=== PATIENT | female | born 1965 | race Caucasian/White ===

== ENCOUNTER → 2017-06-02 | Outpatient (CLI) | payer BC ==
--- NOTE | 2017-06-02 14:12 | REPMRS ---
Patient History The patient states she had a clinical breast exam in 05/28 Patient is postmenopausal. Family history of colorectal cancer in father at age 50 or over. Digital Woman Screen Mammo: June 02, 2017 - Exam #: [id number] Bilateral CC and MLO view(s) were taken. Technologist: Sarah Vásquez, Technologist Prior study comparison: February 15, 2016, digital woman screen mammo performed at [facility] to [facility]. March 05, 2008, bilateral screening mammogram performed at [facility] to [facility]. FINDINGS: There are scattered fibroglandular densities. There has been no change in the appearance of the mammogram from the prior studies. There is a mild amount of residual fibroglandular tissue which is fairly symmetric. There is no interval development of dominant mass, architectural distortion, or clustered microcalcification suggestive of malignancy. ASSESSMENT: BI-RADS/ACR category 1 mammogram. Negative. Recommendation Routine screening mammogram in 1 year (for women over age 40). This mammogram was interpreted with the aid of an FDA-approved computer-aided dectection system. Electronically Signed By: Danny Wall MD 06/02/17 [id number]
== END ==
LOC: M WHC 13:13
PROVIDERS: ATTEND Nurse Practitioner Women's Health
DX: Z12.31 Encounter for screening mammogram for malignant neoplasm of breast (principal)

== ENCOUNTER → 2017-06-02 | Outpatient (REF) | payer OTHER | LOC: M SFHCWAGY 14:13 | PROVIDERS: ATTEND Nurse Practitioner Women's Health | DX: Z12.4 Encounter for screening for malignant neoplasm of cervix (principal); R87.615 Unsatisfactory cytologic smear of cervix ==

== ENCOUNTER → 2018-06-07 | Outpatient (CLI) | payer BC | LOC: M WHC 09:30 | DX: Z12.31 Encounter for screening mammogram for malignant neoplasm of breast (principal); N60.31 Fibrosclerosis of right breast; N60.32 Fibrosclerosis of left breast | CPT/HCPCS: 77067 ==

== ENCOUNTER → 2018-06-07 | Outpatient (REF) | payer OTHER ==
[2018-06-09 14:23] LABS: HPV HYBRID CAPTURE II Negative (Negative)
== END ==
LOC: M SFHCWAGY 10:13
DX: Z12.4 Encounter for screening for malignant neoplasm of cervix (principal)

== ENCOUNTER → 2019-06-10 | Outpatient (CLI) | payer BC ==
--- NOTE | 2019-06-10 12:11 | REPMRS ---
Patient History The patient states she had a clinical breast exam in 05/2019. Patient is postmenopausal. Family history of colorectal cancer at age 50 or over in father, endometrial cancer under age 50 in maternal aunt, endometrial cancer under age 50 in maternal aunt, endometrial cancer under age 50 in maternal aunt, ovarian cancer in maternal grandmother. Benign stereotactic core biopsy of both breasts, 2008. 3D TOMOSYNTHESIS WAS PERFORMED. [facility] lifetime risk for breast cancer is 5.5%. Digital Woman Screen Mammo: June 10, 2019 - Exam #: [id number] Bilateral CC and MLO view(s) were taken. Technologist: Ayanna Gonzalez, Technologist Prior study comparison: June 07, 2018, bilateral digital woman screen mammo performed at [facility]. June 02, 2017, digital woman screen mammo performed at [facility]. FINDINGS: The breast tissue is heterogeneously dense. This may lower the sensitivity of mammography. There has been no change in the appearance of the mammogram from the prior studies. There is a moderate amount of residual fibroglandular tissue which is fairly symmetric. There is no interval development of dominant mass, areas of architectural distortion, or clustered microcalcification typical of malignancy. Assessment: BI-RADS/ACR category 1 mammogram. Negative Mammogram. Recommendation Routine screening mammogram in 1 year (for women over age 40). This mammogram was interpreted with the aid of an FDA-approved computer-aided dectection system. Electronically Signed By: Danny Wall MD 06/10/19 1048
== END ==
LOC: M WHC 10:31
PROVIDERS: ATTEND Nurse Practitioner Women's Health
DX: Z12.31 Encounter for screening mammogram for malignant neoplasm of breast (principal)

== ENCOUNTER → 2020-06-11 | Outpatient (CLI) | payer BC ==
--- NOTE | 2020-06-17 11:20 | REP ---
BILATERAL SCREENING MAMMOGRAM WITH 3D TOMOSYNTHESIS COMPARISON MAMMOGRAM: 05/14/2019, as well as other prior exams. HISTORY: No family history of breast cancer. [facility] lifetime risk of breast cancer 5.4%. History of benign stereotactic biopsy left breast 2008. TECHNIQUE: Bilateral mammography performed in the MLO and CC projections with 3D tomosynthesis. FINDINGS: Mild scattered fibroglandular tissue is seen bilaterally in a fairly symmetrical pattern. Volpara breast density is B. I see no new mass or architectural distortion. Biopsy clip is again seen in the upper outer quadrant of the left breast. In the upper outer quadrant of the right breast, there may be increasing tiny calcifications when compared to the prior studies and magnification views are recommended to further evaluate. IMPRESSION: ACR 0 incomplete. Possible area of increasing tiny microcalcifications focally in the upper outer quadrant of the right breast. Recommend magnification views to further evaluate. ACR 0 incomplete. This mammogram was interpreted with the aid of an FDA approved computer-aided detection system. The patient states she has not had a clinical breast exam in over one year. Patient letter: 0. MTDD
== END ==
LOC: M WHC 09:58
PROVIDERS: ATTEND Nurse Practitioner Women's Health
DX: Z12.31 Encounter for screening mammogram for malignant neoplasm of breast (principal)

== ENCOUNTER → 2020-06-16 | Outpatient (CLI) | payer BC ==
--- NOTE | 2020-06-22 14:40 | REP ---
DIAGNOSTIC MAMMOGRAM RIGHT BREAST Magnification views of the right breast are performed and correlated with the recent mammogram of 06/11/2020. These magnification views confirm the presence of increasing tiny pleomorphic microcalcifications in the upper outer quadrant of the right breast. Stereotactic biopsy is recommended IMPRESSION: ACR 4 suspicious. Increasing tiny pleomorphic microcalcifications upper outer quadrant right breast. Recommended stereotactic biopsy Patient letter: 4. MTDD
== END ==
LOC: M WHC 09:02
PROVIDERS: ATTEND Nurse Practitioner Women's Health
DX: Z12.31 Encounter for screening mammogram for malignant neoplasm of breast (principal); N60.11 Diffuse cystic mastopathy of right breast

== ENCOUNTER → 2020-08-12 | Outpatient (CLI) | payer BC ==
[2020-08-12 14:40] VITALS: BP 122/64
--- NOTE | 2020-08-12 16:39 | REP ---
INDICATION: R92.8 ABN MAMMO/R/CALC/STEREO BX. Specimen radiography right breast. COMPARISON: Comparison mammography June 16, 2020 showed micro calcific grouping.. TECHNIQUE: Single-view specimen radiograms. FINDINGS: Specimen radiography of the removed specimens demonstrate microcalcifications in 2 of the removed specimens from the micro calcific target. IMPRESSION: Specimen radiography demonstrates microcalcifications from the biopsy target. <Electronically signed by Saeed Petty > 08/12/20 1235
--- NOTE | 2020-08-12 16:40 | REP ---
INDICATION: R92.8 ABN MAMMO/R/CALC/STEREO BX. Stereotactic targeting and guidance. COMPARISON: Comparison mammography June 16, 2020. Micro calcific grouping upper-outer quadrant right breast.. TECHNIQUE: Stereotactic guidance and targeting is provided to Dr. Neal performed stereotactic needle biopsy. FINDINGS: Stereotactic imaging demonstrates targeting and sampling of the micro calcific grouping. IMPRESSION: Stereotactic targeting and guidance for needle biopsy. <Electronically signed by Saeed Petty > 08/12/20 [id number]
--- NOTE | 2020-08-12 16:41 | REP ---
INDICATION: R92.8 ABN MAMMO/R/CALC/STEREO BX. Marker clip placement views. COMPARISON: Comparison mammography June 16, 2020. TECHNIQUE: Craniocaudal and mediolateral views of the right breast were obtained.. FINDINGS: Cc and true mL views of the right breast demonstrate needle biopsy marker clip in good position. There are few are microcalcifications visible. No hematoma seen. IMPRESSION: Needle biopsy marker clip in good position in the right breast. There are fewer microcalcifications visible. This mammogram was read with the assistance of a computer rated detection device approved by the FDA. <Electronically signed by Saeed Petty > 08/12/20 [id number]
--- NOTE | 2020-08-12 21:22 | ROOPDOC ---
[facility] Report Of Operation Report of Operation DATE OF PROCEDURE: 08/12/20 DIAGNOSIS: Right breast suspicious calcifications PROCEDURE: Right breast stereotactic biopsy with clip placement SURGEON: Ban Gill BLOOD LOSS: minimal Lidocaine 1% LOT [id number] Expiration 04/2023 Sodium Bicarbonate 8.4% LOT [id number] Expiration 06/2021 Hydromark clip LOT [id number] Expiration 11/2022 T3 titanium shaped 3 Bx device: Stereotactic Mammotome Revolve Dual Vacuum- assisted Biopsy System 10 G LOT [id number] Expiration 05/2023 REF [id number] Informed consent was obtained in the preop area. The most common risk and possible complications including bleeding, hematoma, bruising, infection, injury to surrounding structures were explained to the patient and she expressed understanding. Patient was taken to the procedure room and placed prone on the [facility] Breast Biopsy table with the right breast hanging through the table aperture. Right breast was placed into Cranio-Caudal compression and [employer] Operator kagn images were taken. Suspicious calcifications were identified on the kang images and target was set. There were also additional posterior calcifications noted on kang views. CC approach from the top was chosen for this procedure. At this time, since we were able to confirm visibility of the suspicious calcifications and patient tolerated prone positioning allowing to proceed with the biopsy, appropriate time out was done stating patients name, date of , and the procedure to be performed. The right breast in CC compression was prepped in the usual fashion. Plain Lidocaine 1% and 8.4% sodium bicarbonate 10:1 mix was used to anesthetize the skin, the biopsy site and tissues along the anticipated biopsy tract. Small skin incision was made with blade number 11. Mammotome 10 G stereotactic breast biopsy device was inserted through the incision and advanced to the previously set coordinates marking the target lesion. Pre-fire imaging was taken to assure appropriate positioning. At this time, Mammotome 10 G breast biopsy device was fired and vacuum assisted biopsies were collected. The biopsy samples were investigated with [employer] system and the targeted cluster of calcifications were observed. Biopsy samples were then placed in the formaldehyde, marked with patients name and right breast biopsy site, and sent to pathology for evaluation. SHAPE 3 Hydromark clip was placed into the Mammotome biopsy device channel and deployed. Post-deployment imaging was done to assure appropriate clip deployment. Clip was noted in the right breast. At this point, paddle CC compression of the right breast was released and manual pressure was held to decrease harmonic effect and to assure hemostasis. No bleeding was noted upon removal of the pressure. Patient was slowly repositioned and placed into sitting position, and then assisted off the table. Post-biopsy mammogram of the right breast was obtained and showed clip in expected position. Postprocedural dressing was placed. Patient tolerated procedure well and was taken to the recovery unit in stable condition. Discharge instructions were discussed with the patient and she expressed understanding. BAN GILL DO Aug 12, 2020 21:22
== END ==
LOC: M WHCPRO 12:51
PROVIDERS: ATTEND Surgery
DX: N60.31 Fibrosclerosis of right breast (principal)

== ENCOUNTER → 2021-02-22 | Outpatient (CLI) | payer BC, OTHER ==
[2021-02-22 13:44] LABS: BASO % 0.5 % (0.0-1.0); EOS % 0.6 % (0.0-3.0); HEMATOCRIT 39.5 % (36.0-47.0); HEMOGLOBIN 12.7 g/dl (12.0-15.5); LYMPH # 1.8 10^3/uL (1.5-5.0); LYMPH % 26.8 % (24.0-44.0); MEAN CORPUSCULAR HEMOGLOBIN 29.4 pg (27.0-33.0); MEAN CORPUSCULAR HGB CONC 32.2 g/dl (32.0-36.5); MEAN CORPUSCULAR VOLUME 91.4 fl (80.0-96.0); MONO # 0.5 10^3/uL (0.0-0.8); MONO % 7.8 % (2.0-8.0); NEUTROPHILS # 4.3 10^3/uL (1.5-8.5); PLATELET COUNT, AUTOMATED 284 10^3/uL (150-450); RED BLOOD COUNT 4.32 10^6/uL (4.00-5.40); WHITE BLOOD COUNT 6.7 10^3/uL (4.0-10.0)
[2021-02-22 14:39] LABS: ERYTHROCYTE SEDIMENTATION RATE 8 mm/hr (0-30)
[2021-02-22 14:52] LABS: RHEUMATOID FACTOR QUANT < 10.0 IU/ML (<15.0); THYROGLOBULIN ANTIBODY > 500.0 U/ML (<60.0); THYROID PEROXIDASE ANTIBODY > 1300.0 U/ML (<60.0)
== END ==
LOC: M WUC 11:38
PROVIDERS: ATTEND Allergy & Immunology Allergy
DX: L50.1 Idiopathic urticaria (principal)

== ENCOUNTER → 2021-03-19 | Outpatient (CLI) | payer BC, OTHER ==
--- NOTE | 2021-03-19 10:10 | REPMRS ---
Patient History The patient states she has not had a clinical breast exam in over a year. Family history of colorectal cancer at age 50 or over in father, endometrial cancer under age 50 in maternal aunt, endometrial cancer under age 50 in maternal aunt, endometrial cancer under age 50 in maternal aunt, ovarian cancer in maternal grandmother. Benign stereotatic loc for ea lesion. of the right breast, August 12, 2020. Benign radio exam breast specimen. of the right breast, August 12, 2020. Benign stereotactic core biopsy of both breasts, 2008. Dr Neal. 6 month f/u to right breast stereo biopsy performed 08/2020 Diagnostic Unilateral Mammo: Right Breast - March 19, 2021 - Exam #: [id number] CC and MLO view(s) were taken of the right breast. Technologist: Sarah Vásquez, Technologist Prior study comparison: June 16, 2020, right breast diagnostic unilateral mammo performed at [facility]. June 11, 2020, bilateral digital woman screen mammo performed at [facility]. June 10, 2019, bilateral digital woman screen mammo performed at [facility]. June 07, 2018, bilateral digital woman screen mammo performed at [facility]. FINDINGS: There are scattered fibroglandular densities. [There are a few tiny punctate CT microcalcifications from the original study grouping in the right breast upper outer quadrant adjacent to the marker clip. The marker clip is felt to be in good position. There is soft tissue density surrounding the marker clip due to the associated hydrophilic component of the marker clip device (HydroMARK clip placement close). There has been no other change in the appearance of the right breast parenchyma in the interval since the prior examination. No mass, architectural distortion, or new microcalcific grouping has developed. No suspicious finding. 3-D tomosynthesis shows no additional findings. Assessment: BI-RADS/ACR category 2 mammogram. Benign Findings. Recommendation Routine screening mammogram of both breasts in 6 months. This patient's [facility] Lifetime Breast Cancer RIsk is estimated at 5.4 %. This mammogram was interpreted with the aid of an FDA-approved computer-aided dectection system. Electronically Signed By: Saeed Petty MD 03/19/21 1478
== END ==
LOC: M WHC 09:13
PROVIDERS: ATTEND Surgery
DX: R92.8 Other abnormal and inconclusive findings on diagnostic imaging of breast (principal)

== ENCOUNTER → 2023-06-20 | Outpatient (CLI) | payer BC, OTHER | LOC: M WHC 08:50 | PROVIDERS: ATTEND Nurse Practitioner Family | DX: R92.8 Other abnormal and inconclusive findings on diagnostic imaging of breast (principal) | CPT/HCPCS: 77065; G0279 ==

== ENCOUNTER → 2023-12-12 | Outpatient (CLI) | payer BC | LOC: M WHC 10:37 | PROVIDERS: ATTEND Nurse Practitioner Family | DX: R92.8 Other abnormal and inconclusive findings on diagnostic imaging of breast (principal); R92.323 Mammographic fibroglandular density, bilateral breasts; R92.1 Mammographic calcification found on diagnostic imaging of breast | CPT/HCPCS: 77066; G0279 ==

== ENCOUNTER → 2024-06-11 | Outpatient (CLI) | payer BC | LOC: M WHC 10:12 | PROVIDERS: ATTEND Nurse Practitioner Family | DX: R92.8 Other abnormal and inconclusive findings on diagnostic imaging of breast (principal); R92.323 Mammographic fibroglandular density, bilateral breasts; R92.1 Mammographic calcification found on diagnostic imaging of breast ==

== ENCOUNTER → 2025-06-16 | Outpatient (CLI) | payer BC | LOC: M WHC 09:46 | PROVIDERS: ATTEND Nurse Practitioner Family | DX: Z12.31 Encounter for screening mammogram for malignant neoplasm of breast (principal) ==